=== PATIENT | female | born 1975 | race Caucasian/White ===

== ENCOUNTER 2024-01-28 14:24 | Emergency (ER) | payer BC, SELFPAY ==
[2024-01-28] VITALS (7 sets, daily range): BP systolic 166–234; BP diastolic 83–211
--- NOTE | 2024-01-28 15:04 | ED.GENMED ---
History of Present Illness
General
Chief Complaint: Nose Bleed
Time Seen by Provider: 01/28/24 15:04
Travel History
Have you had any contact with someone who has COVID-19?: No
Do you have any symptoms of coronavirus? Fever > 100 degrees, chills, cough, shortness of breath, sore throat, loss of taste or smell, muscle aches, or headache?: No
History of Present Illness
History of Present Illness:
HPI: Patient presents with left-sided nosebleed. It started earlier last night. She does not take any anticoagulants or antiplatelets. She was found to be hypertensive here checked multiple times at triage and does not take any antihypertensives.
She denies any pain.
EXAM:
GENERAL: Appears somewhat anxious
HEENT: Moist oral mucosa, there is blood noted from both nostrils, there appears to be a slight not actively bleeding at the anterior nasal septum consistent with recent bleeding
CARDIOVASCULAR: No murmurs, normal heart rate and rhythm, No chest wall tenderness
PULMONARY: No respiratory distress, breath sounds are clear and equal
ABDOMEN: Soft with no peritoneal signs, no tenderness
NEUROLOGIC: Excellent strength all extremities, no coordination deficits
PSYCHIATRIC: Appropriate mental status, normal insight and judgement
EXTREMITIES: Nontender, no edema, moves all extremities equally
SKIN: No rash, no lesions
ED COURSE:
3 PM: I initially evaluated patient
NUMBER AND COMPLEXITY OF PROBLEMS ADDRESSED AT THE ENCOUNTER
� Chronic conditions affecting care: Denies any past medical history
� Acute Exacerbation and/or Progression of Chronic Illness: This is an acute problem
� Differential Diagnosis includes: Hypertensive urgency, spontaneous nosebleed, anterior nosebleed, posterior nosebleed, thrombocytopenia, anemia
AMOUNT AND/OR COMPLEXITY OF DATA TO BE REVIEWED AND ANALYZED
� I performed an independent evaluation of and my interpretation is:
EKG:
CT:
X-rays:
Laboratory Studies: Hemoglobin is 15.0, platelets of 405, minimal leukocytosis noted, chemistries relatively unremarkable
Other:
� Review of other/old records: No old records available for review in [facility]
� Clinical information was obtained by an independent historian: I spoke to her partner at bedside
� Prescriptions/Medications Considered but not given:
� Further testing considered but not performed:
RISK OF COMPLICATIONS AND/OR MORBIDITY OR MORTALITY OF PATIENT MANAGEMENT
� Social determinants of health affecting care: Lives at home
� Discussion with other providers:
� Escalation of care including admission/observation vs risk of discharge considered: As the patient is markedly hypertensive upon arrival, in the setting of active nosebleeding, will give IV antihypertensive. I did place
Judah-Synephrine soaked cotton bilaterally. There is only scant amount of bleeding as of 3:25 PM. I reassessed patient at 4:10 PM and there has been no further bleeding.
Phy Exam
Physical Exam
Physical Exam:
See HPI
Course
Orders/Labs/Results
Orders:
Orders
01/28/24 15:08
Labetalol HCl [Trandate] 10 mg IV NOW STA
01/28/24 15:14
Phenylephrine 1% Extra Strengt [Ujdah-Synephrine 1% Nasal [place]] See Dose Instructions NASAL NOW STA
01/28/24 15:31
Basic Metabolic Panel Urgent
Complete Blood Count/With Diff Urgent
Abnormal Lab Results
01/28/24
15:31
WBC 12.3 H 10^3/uL
(4.8-10.8)
RBC 5.49 H 10^6/uL
(4.20-5.40)
MCV 79.2 L fL
(81.0-99.0)
Plt Count 405 H 10^3/uL
(130-400)
Abs Immat Gran (auto) 0.1 H 10^3/uL
(0-0.05)
Absolute Neuts (auto) 8.5 H 10^3/uL
(1.4-6.5)
Absolute Monos (auto) 0.7 H 10^3/uL
(0.1-0.6)
Immature Gran % 0.6 H %
(0-0.5)
BUN 18 H mg/dl
(7-17)
Glucose 120 H mg/dl
(70-99)
01/28/24 15:31
01/28/24 15:31
Vital Signs
Initial and Last Documented VS:
Initial Vital Signs
Temp Pulse Resp BP Pulse Ox
97.9 F 99 16 234/130 100
01/28/24 14:26 01/28/24 14:26 01/28/24 14:26 01/28/24 14:26 01/28/24 14:26
Last Documented Vital Signs
Temp Pulse Resp BP Pulse Ox
97.9 F 99 16 186/91 100
01/28/24 14:26 01/28/24 14:26 01/28/24 14:26 01/28/24 16:00 01/28/24 14:26
Procedures
Nosebleed
Drug treatment: Neosynephrine
Treatment: Silver nitrate cautery
Post treatment bleeding: none- good control
*Critical Care Note
Total Time (30-74mins, 75-104mins- exclusive of procedures): Not Applicable
ED Attending Note
-
Portions of this chart may have been created with voice recognition software.� Occasional wrong word or��sound alike� substitutions may have occurred due to the inherent limitations of voice recognition software.
Discharge Plan
Departure
Patient Disposition: Home (Routine Discharge)
Date of Disposition: 01/28/24
Time of Disposition: 16:12
Patient with high blood pressure during this ER visit?: Yes
Discharge Problem:
Acute anterior epistaxis
Instructions: Nosebleeds (DC), BLOOD PRESSURE
Prescriptions:
New
losartan 50 mg tablet
50 mg PO DAILY Qty: 30 0RF
Referrals:
Lawrence Brewer MD [Active] - Follow up in 2-3 days
PRIVATE,PHYSICIAN [Family Provider] -
Activity Restrictions/Additional Instructions:
We initially used Judah-Synephrine soaked cotton in both nostrils and then I cauterized the anterior nasal septum on the left side. I recommend that you follow-up with an ENT doctor such as Dr. Brewer. It is very important that you follow-up with
primary care doctor as well for reassessment of your blood pressure. Given that your blood pressure was so high (well over 200 on several readings), we have placed on blood pressure medication.
Interventions
Interventions:
*Risk Screen - Suicide Last Done: 01/28/24 14:26
*General Assessment Last Done: 01/28/24 14:26
*Neglect/Abuse Screening Last Done: 01/28/24 14:26
ED- Fall Risk Assessment Last Done: 01/28/24 15:36
ED-EENT Assessment Last Done: 01/28/24 15:36
[2024-01-28] MEDS: TRANDATE 10 MG IV (15:29)
[2024-01-28] MEDS: NEO-SYNEPHRINE 1% NASAL SPRAY 1 SPRAY NASAL (15:30)
[2024-01-28 15:45] LABS: % Basophils 0.9 % (0-2); % Eosinophils 1.5 % (0-6); % Immature Granulocytes 0.6 % (0-0.5); % Lymphocytes 22.3 % (20.5-51.1); % Monocytes 5.4 % (1.7-9.3); % Neutrophils 69.3 % (42.2-75.2); Absolute Basophils 0.1 10^3/uL (0-0.2); Absolute Eosinophils 0.2 10^3/uL (0-0.7); Absolute Immature Granulocytes 0.1 10^3/uL (0-0.05); Absolute Lymphocytes 2.8 10^3/uL (1.2-3.4); Absolute Monocytes 0.7 10^3/uL (0.1-0.6); Absolute Neutrophils 8.5 10^3/uL (1.4-6.5); Hematocrit 43.5 % (37.0-47.0); Mean Corp Hgb Conc. 34.5 g/dL (33.0-37.0); Mean Corpuscular Hgb 27.3 pg (27.0-31.0); Mean Corpuscular Volume 79.2 fL (81.0-99.0); Mean Platelet Volume 9.6 fL (7.4-10.4); Nucleated Red Blood Cells % 0 %; Platelet Count 405 10^3/uL (130-400); Red Blood Cell Count 5.49 10^6/uL (4.20-5.40); White Blood Cell Count 12.3 10^3/uL (4.8-10.8)
[2024-01-28 15:58] LABS: Blood Urea Nitrogen 18 mg/dl (7-17); Calcium 9.9 mg/dl (8.4-10.2); Carbon Dioxide 28 mmol/L (22-30); Chloride 100 mmol/L (98-107); Glucose 120 mg/dl (70-99); Sodium 138 mmol/L (135-145); eGFR > 60.00
== END 2024-01-28 16:28 | disposition home or self-care (01) ==
LOC: EMR 14:24
PROVIDERS: EMERGENCY PHYSICIAN Emergency Medicine
DX: R04.0 Epistaxis (principal); I10 Essential (primary) hypertension
CPT/HCPCS: 99284; 96374; 30901; 80048; 85025